=== PATIENT | female | born 1935 | race Caucasian/White ===

== ENCOUNTER 2017-03-27 11:23 | Emergency (ER) | payer OTHER ==
[2017-03-27 11:30] VITALS: TEMP 97.7; BMI 26.0
--- NOTE | 2017-03-27 12:07 | PDOC ---
History of Present Illness - General Chief Complaint: Eye Problem Stated Complaint: EYE PROBLEM, VISION LOSS LEFT EYE Time Seen by Provider: 03/27/17 12:06 History Source: Patient - History of Present Illness Initial Comments: 03/27/17 12:15 Pt. is a 81 y/o female with PMH of HTN, HLD who presents to the ED with a c/o not being able to see out of her left eye since this morning at 2am. Pt. states that she woke up at 2am to use the bathroom and felt that her vision was blurred in her L eye. When she woke up at 6am this morning, she states she could not see at all out of her L eye. States that her R eye vision is unchanged. Denies pain in the eye, and trauma. Pt. usually wears corrective lenses. States that she was seeing floaters the past few days. Denies seeing flashing lights. Denies fevers, chills, nausea, anemia, vomiting, chest pain, SOB, vomiting and diarrhea. Past History - Travel Traveled outside of the country in the last 30 days: No Close contact w/someone who was outside of country & ill: No - Past Medical History Allergies/Adverse Reactions: Allergies Allergy/AdvReac Type Severity Reaction Status Date / Time No Known Allergies Allergy Verified 03/27/17 11:30 HTN: Yes Hypercholesterolemia: Yes - Surgical History Appendectomy: Yes - Psycho/Social/Smoking Cessation Hx Suicidal Ideation: No Smoking History: Never smoked Information on smoking cessation initiated: No Hx Alcohol Use: No Drug/Substance Use Hx: No Substance Use Type: None Review of Systems - Review of Systems Able to Perform ROS?: Yes Is the patient limited Kosovan proficient: No Constitutional: No: Chills, Fever, Weakness HEENTM: Yes: Blurred Vision (Left eye), Recent change in vision (Unable to see out of left eye ). No: Eye Pain, Tearing, Double Vision Respiratory: No: Cough, Shortness of Breath Cardiac (ROS): No: Chest Pain, Edema, Lightheadedness, Palpitations ABD/GI: No: Diarrhea, Nausea, Vomiting All Other Systems: Reviewed and Negative *Physical Exam - Vital Signs Last Vital Signs Temp Pulse Resp BP Pulse Ox 97.7 F 61 19 185/91 100 03/27/17 11:28 03/27/17 11:28 03/27/17 11:28 03/27/17 11:28 03/27/17 11:28 - Physical Exam General Appearance: Yes: Nourished, Appropriately Dressed, Other (Sitting on exam bed). No: Apparent Distress HEENT: positive: EOMI, NATALIE, Other (No visual acuity OS. 25/20 OD corrected, 40/ 20 OU corrected. Fundoscopic exam: No AV nicking, disc appropirately sized b/l. Slit Lamp exam: slight hemorrhage in the posterior chamber OS. No corneal abrasion b/l) Neck: positive: Trachea midline, Normal Thyroid, Supple. negative: Tender, Rigid, Lymphadenopathy (R), Lymphadenopathy (L) Respiratory/Chest: positive: Lungs Clear, Normal Breath Sounds. negative: Chest Tender, Respiratory Distress, Accessory Muscle Use, Rales, Rhonchi, Wheezing Cardiovascular: positive: Regular Rhythm, Regular Rate, S1, S2 (present). 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 Sensation grossly intact) ED Treatment Course - LABORATORY CBC & Chemistry Diagram: 03/27/17 12:30 03/27/17 12:30 Medical Decision Making - Medical Decision Making 03/27/17 12:23 Pt. is a 81 y/o female with PMH of HTN, HLD who presents to the ED complaining of painless visual loss in the L eye. Denies trauma to the eye. Basic visual acuity exam shows pt has no vision in the L eye. Most probable diagnosis, detached retina, retinal hemorrhage. Other diagnosis, central vein/artery occlusion, less likely; anemia, temporal cell arthritis. Unlikely stroke as visual loss is only in one visual field, and neuro exam is normal. 1. CBC, CMP, ESR, CRP 2. Slit lamp examination 3. Re-evaluate 03/27/17 12:59 Slit lamp exams shows a mild amount of blood in the posterior chamber of the L eye. Cannot see a retina in the visual field. Most likely a retinal hemorrhage? Will consult ophthalmology medical donation professional. 03/27/17 13:[address] Vasquez. Given physical exam findings and history, agrees with potential retinal damage. Recommends pt. be seen by retinal specialist. Was able to set up appointment with Dr. Quiroz for pt. Pt. is to go to his office today upon discharge. CRP, ESR, CBC within normal limits. 03/27/17 13:41 Liver enzymes are elevated on CMP. Pt. states that her pcp is aware of this and he is currently in the process of following the labs/making medication changes. States she will let her PCP know the results. Pt. also understands that she needs to see the retinal specialist. States that she will follow up as soon as she leaves the ED. Pt. feels comfortable with the discharge plan, and understands all discharge instructions. All questions were answered at this time. *DC/Admit/Observation/Transfer Diagnosis at time of Disposition: Vision loss of left eye, Retinal tear of left eye - Discharge Dispostion Disposition: HOME Condition at time of disposition: Stable Admit: No - Referrals Referrals: Jesse Daily MD, MD [Primary Care Provider] - Carl Quiroz MD [Non Staff, Medical] - - Patient Instructions Printed Discharge Instructions: DI for Detached Retina Additional Instructions: You have vision loss in your left eye which is most likely due to a retinal tear. - Follow up with Dr. Carl Quiroz retinal specialist as soon as you leave. He can see you this afternoon. - He is located at: [address] [place], [place] [id number] - Your liver enzymes were elevated today. Follow up with your primary care doctor about the results. He may need to switch some of your medication. - If you have pain, fevers, chills, or any changes in your symptoms, return to the emergency department.
[2017-03-27 12:40] LABS: BASOPHIL 1.2 % (0-2.0); EOSINOPHIL 1.3 % (0-4.5); MCH 31.1 pg (25.7-33.7); MEAN CELL VOLUME 91.4 fl (80-96); MEAN PLT VOLUME 8.7 fl (7.5-11.1); NEUTROPHILS 69.1 % (42.8-82.8); PLATELET COUNT 142 K/MM3 (134-434); RDW 12.8 % (11.6-15.6); WHITE BLOOD COUNT 5.5 K/mm3 (4.0-10.0)
[2017-03-27 13:16] LABS: ALBUMIN 3.6 g/dl (3.4-5.0); ALK PHOS 121 U/L (45-117); ANION GAP 7 (8-16); BILIRUBIN,TOTAL 0.7 mg/dL (0.2-1.0); C-REACTIVE PROTEIN < 0.3 MG/DL (0.00-0.3); CALCIUM 9.1 mg/dL (8.5-10.1); CO2 28 mmol/L (21-32); CREATININE 1.5 mg/dL (0.55-1.02); GLUCOSE,RANDOM 206 mg/dL (74-106); SGOT/AST 362 U/L (15-37); TOT PROT 7.8 g/dl (6.4-8.2)
[2017-03-27 13:17] LABS: SGPT/ALT 631 U/L (12-78)
[2017-03-27 14:01] VITALS: BP 169/92; PULSE 74
--- NOTE | 2017-03-27 14:05 | PDOC ---
*Physical Exam - Vital Signs Last Vital Signs Temp Pulse Resp BP Pulse Ox 97.7 F 61 19 185/91 100 03/27/17 11:28 03/27/17 11:28 03/27/17 11:28 03/27/17 11:28 03/27/17 11:28 ED Treatment Course - LABORATORY CBC & Chemistry Diagram: 03/27/17 12:30 03/27/17 12:30 - ADDITIONAL ORDERS Additional order review: Laboratory Results 03/27/17 12:30 Sodium 139 Potassium 4.3 Chloride 104 Carbon Dioxide 28 Anion Gap 7 L BUN 27 H Creatinine 1.5 H Creat Clearance w eGFR 33.50 Random Glucose 206 H Calcium 9.1 Total Bilirubin 0.7 AST 362 H ALT 631 H Alkaline Phosphatase 121 H C-Reactive Protein < 0.3 Total Protein 7.8 Albumin 3.6 03/27/17 12:30 RBC 4.13 MCV 91.4 MCHC 34.0 RDW 12.8 MPV 8.7 Neutrophils % 69.1 Lymphocytes % 20.9 Monocytes % 7.5 Eosinophils % 1.3 Basophils % 1.2 Medical Decision Making - Medical Decision Making 03/27/17 13:59 81 yo F h/o HTN HLD, woke up at 2 am with blurry vision. the lights were off at that time. went back to bed, this am noted blurry vision and loss of clarity in left eye only. no black vision. can still see light and [place]. sxs are intermittent. no headache. no other nuerological sxs. no weakness or numbness. right eye is normal. no f/c no head trauma.normally wears glassess. no fb sensation. on exam pt awake alert EOMI, perrly. on slit lamp , no flourescin uptake. no fb. plan bedside us. ocular, slit lamp. will test visual acuity. ananda retnal evaluation by opthomologist. 03/27/17 14:04 pt with normal ocular ultrasound. no retinal detachment or hemorrhage noted. dw retinal specialist pt to go directly to his office for evalution. pt seen and evaluated with Rosina Flanagan, agree with plan. *DC/Admit/Observation/Transfer Diagnosis at time of Disposition: Vision loss of left eye, Retinal tear of left eye - Referrals Referrals: Jesse Daily MD, [Primary Care Provider] - Carl Quiroz MD [Non Staff, Medical] - - Patient Instructions Printed Discharge Instructions: DI for Detached Retina Additional Instructions: You have vision loss in your left eye which is most likely due to a retinal tear. - Follow up with Dr. Carl Quiroz retinal specialist as soon as you leave. He can see you this afternoon. - He is located at: [address] [place] [address] - Your liver enzymes were elevated today. Follow up with your primary care doctor about the results. He may need to switch some of your medication. - If you have pain, fevers, chills, or any changes in your symptoms, return to the emergency department. - Post Discharge Activity
[2017-03-27 16:01] LABS: ERYTHROCYTE SEDIMENTATION RATE 39 mm/hr (0-30)
== END 2017-03-27 14:01 | disposition home or self-care (01) ==
LOC: JER 11:23
DX: H54.7 Unspecified visual loss (principal); H33.312 Horseshoe tear of retina without detachment, left eye; I10 Essential (primary) hypertension; E78.5 Hyperlipidemia, unspecified
CPT/HCPCS: 36415; 80053; 85025; 85651; 86140; 99282-25

== ENCOUNTER 2017-04-03 09:43 | Day surgery (SDC) | payer OTHER ==
[2017-04-03 09:06] VITALS: BMI 27.1
[2017-04-03] MEDS ORDERED: PROPOFOL 20 ML ONE ×2 (10:18)
[2017-04-03] MEDS ORDERED: LIDOCAINE HCL/PF 2% SDV 5ML VIAL ONE (10:18)
[2017-04-03] MEDS ORDERED: LIDOCAINE VISCOUS 2% ORAL/TOP 20 ML UNIT-DOSE CUP MM ONE (10:30)
[2017-04-03 11:04] VITALS: TEMP 98
[2017-04-03 12:11] VITALS: BP 134/57; PULSE 76
== END 2017-04-03 12:40 | disposition home or self-care (01) ==
LOC: JASU-ENDO 09:43
PROVIDERS: ATTEND Internal Medicine Cardiovascular Disease
PROC: B245ZZ4 Ultrasonography of Left Heart, Transesophageal (ICD-10-PCS; principal; 2017-04-03 10:00)
DX: I48.91 Unspecified atrial fibrillation (principal)
CPT/HCPCS: 93312; 93325